=== PATIENT | female | born 1975 | race Caucasian/White ===

== ENCOUNTER 2019-04-10 11:13 | Emergency (ER) | payer MEDICAID, OTHER ==
--- NOTE | 2019-04-10 11:45 | ED ---
Abdominal Pain/Female - HPI Summary HPI Summary: Patient is a 43 y/o F presenting to ED with complaints of RUQ pain that onset this morning. Patient notes that the pain onset while she was moving objects in her office. PSHx of cholecystectomy and appendectomy. However, patient describes present pain as being similar to that she experienced during her previous gallbladder attacks. Nausea and some SOB are endorsed. Fever and trauma are denied. She states that her RUQ feels "congested" and notes some radiation and exacerbation of pain with deep breaths. Movement and supine position exacerbate pain as well. BMs are reported to be normal, last was this morning. Patient denies urinary Sx and states she has been passing gas normally. Pain is 7-8/10 at present. PMHx of GERD, but she states this presentation is dissimilar to her GERD. Patient is on last day of her menstrual cycle. 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 Home medications and allergies are reviewed. - History of Current Complaint Stated Complaint: ABD PAIN Hx Obtained From: Patient Hx Last Menstrual Period: 08/08/14 Onset/Duration: Sudden Onset, Lasting Hours - this morning, Still Present Timing: Hours - this morning Pain Intensity: 7 Pain Scale Used: 0-10 Numeric Location: Discrete At: RUQ Character: Other: - "congested" Aggravating Factor(s): Movement, Deep Breaths, Other: - supine position Alleviating Factor(s): Nothing Associated Signs and Symptoms: Positive: Nausea, Other: - SOB endorsed, passing gas normally, BMs normal, no trauma. Negative: Fever, Constipation, Urinary Symptoms, Diarrhea Allergies/Adverse Reactions: Allergies Allergy/AdvReac Type Severity Reaction Status Date / Time latex Allergy Rash Verified 04/10/19 11:29 Home Medications: Home Medications NK [No Home Medications Reported] 04/10/19 [History Confirmed 04/10/19] PMH/Surg Hx/FS Hx/Imm Hx Cardiovascular History: Reports: Hx Hypertension GI History: Reports: Hx Gall Bladder Disease Musculoskeletal History: Denies: Hx Scoliosis Neurological History: Reports: Hx Headaches Denies: Other Neuro Impairments/Disorders - Surgical History Surgery Procedure, Year, and Place: cholecystectomy and appendectomy - Immunization History Date of Tetanus Vaccine: <10 yrs. Date of Influenza Vaccine: Fall 2010 Infectious Disease History: No Infectious Disease History: Denies: Traveled Outside the [place] in Last 30 Days - Family History Known Family History: Negative: Cardiac Disease, Hypertension, Diabetes - Social History Alcohol Use: Rare Substance Use Type: Reports: None Smoking Status (MU): Former Smoker Review of Systems Negative: Fever Positive: Shortness Of Breath Positive: Abdominal Pain, Nausea Genitourinary: Other - PASSING GAS NORMALLY, NO ABNORMAL BMs Positive: no symptoms reported - URINARY Musculoskeletal: Other - NEGATIVE - TRAUMA All Other Systems Reviewed And Are Negative: Yes Physical Exam - Summary Physical Exam Summary: VITAL SIGNS: Reviewed. GENERAL: Patient is a well-developed and nourished female who is lying comfortable in the stretcher. Patient is not in any acute respiratory distress. Right ribcage tenderness is noted. HEAD AND FACE: Normocephalic and atraumatic. EYES: PERRLA, EOMI x 2, No injected conjunctiva. EARS: Hearing grossly intact. Ear canals and tympanic membranes are WNL. MOUTH: Oropharynx within normal limits. NECK: Supple, trachea is midline, no adenopathy, no JVD. CHEST: Symmetric, no tenderness at palpation LUNGS: Clear to auscultation bilaterally. No wheezing or crackles. CVS: RRR, S1 and S2 present, no murmurs or gallops appreciated. ABDOMEN: Soft, RUQ tenderness. No signs of distention. Positive bowel sounds. No rebound no guarding, and no masses palpated. No abdominal bruit or pulsations. EXTREMITIES: FROM in all major joints, no edema, no cyanosis or clubbing. NEURO: Alert and oriented x 3. No acute neurological deficits. Speech is normal. SKIN: Dry and warm. Triage Information Reviewed: Yes Vital Signs On Initial Exam: Initial Vitals Temp Pulse Resp BP Pulse Ox 98.7 F 89 19 205/119 98 04/10/19 11:26 04/10/19 11:26 04/10/19 11:26 04/10/19 11:26 04/10/19 11:26 Vital Signs Reviewed: Yes Diagnostics - Vital Signs Vital Signs Temp Pulse Resp BP Pulse Ox 04/10/19 11:26 98.7 F 89 19 205/119 98 - Laboratory Result Diagrams: 04/10/19 12:05 04/10/19 12:05 Lab Statement: Any lab studies that have been ordered have been reviewed, and results considered in the medical decision making process. - CT CT ABD/PEL CT Interpretation Completed By: Radiologist Summary of CT Findings: IMPRESSION: 1. STATUS POST CHOLECYSTECTOMY. THERE IS MILD EXTRAHEPATIC DUCTAL DISTENTION. THIS IS. COMMONLY SEEN IN POSTCHOLECYSTECTOMY PATIENTS. IF THE PATIENT'S RIGHT UPPER QUADRANT PAIN. PERSISTS CONSIDER MRCP IMAGING. 2. MILDLY ENLARGED UTERUS. THIS REPORT WAS REVIEWED BY DR. JENSEN. - EKG 1209 Cardiac Rate: NL - rate of 91 BPM EKG Rhythm: Sinus Rhythm EKG Comparison: No Significant Change - compared to 10/12/15 Summary of EKG Findings: EKG showed sinus rhythm with rate of 91 BPM, no ST elevation, normal axis, no significant change compared to 10/12/15. Dr. Jensen has reviewed and interpreted EKG. Re-Evaluation - Re-Evaluation First Eval Re-Evaluation Time: 15:10 Change: Improved Comment: Patient had high BP and was given lambetalol, BP is stable now. She is pain free at this time. I discussed all the findings and test results with the patient. Patient was instructed to return to the emergency room immediately if any of the symptoms return worsens. Plan of care was discussed with the patient and understands and agrees. All questions were answered at patient satisfaction. There were no further complaints or concerns. Lung exam before discharge: CTA B/L. Good air exchange. No wheezing or crackles heard. CVS: S1 and S2 present. No murmurs appreciated. Patient is alert and oriented x 3. Patient is hemodynamically stable. Patient will be discharged home with follow up PCP in the next 2-3 days Abdominal Pain Fem Course/Dx - Course Course Of Treatment: Patient is a 43 y/o F presenting to ED with complaints of RUQ pain that onset this morning. PSHx of cholecystectomy and appendectomy. However, patient describes present pain as being similar to that she experienced during her gallbladder attacks. Nausea and some SOB are endorsed. Fever and trauma are denied. Patient notes that the pain onset while she was moving objects in her office this morning. She states that her RUQ feels "congested" and some radiation and exacerbation of pain with deep breaths. Movement and supine position exacerbate pain as well. BM are reported to be normal, last was this morning. Patient denies urinary Sx and states she has been passing gas normally. Pain is 7-8/10 at present. PMHx of GERD, but she states this presentation is dissimilar to her GERD. Patient is on last day of her menstrual cycle. 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 Abbdominal and pelvic CT IMPRESSION: 1. STATUS POST CHOLECYSTECTOMY. THERE IS MILD EXTRAHEPATIC DUCTAL DISTENTION. THIS IS COMMONLY SEEN IN POSTCHOLECYSTECTOMY PATIENTS. IF THE PATIENT'S RIGHT UPPER QUADRANT PAIN PERSISTS CONSIDER MRCP IMAGING. 2. MILDLY ENLARGED UTERUS. Blood work without any significant abnormality except for potassium at 3.3 and glucose of 106. Urinalysis is negative for UTI. In the ED course the patient was given morphine and Zofran for nausea and pain and the symptoms improved. The patient also was given IV hydration. Patients blood pressure has continued to be elevated. Therefore the patient was given labetalol 20 mg IV. She has no history of hypertension. She declined any blood pressure medications at this point to be prescribed for her. She has an appointment with her primary care physician and she will decided to take blood pressure medications to the point. She is ruled out for diverticulitis, kidney stones, or any other intra- abdominal pathology the patient will be discharged home with follow-up with PCP. Patient is hemodynamically stable alert oriented 3. I discussed all the findings and test results with the patient. Patient was instructed to return to the emergency room immediately if any of the symptoms return worsens. Plan of care was discussed with the patient and understands and agrees. All questions were answered at patient satisfaction. There were no further complaints or concerns. Lung exam before discharge: CTA B/L. Good air exchange. No wheezing or crackles heard. CVS: S1 and S2 present. No murmurs appreciated. Patient is alert and oriented x 3. Patient is hemodynamically stable. Patient will be discharged home with follow up PCP in the next 2-3 days - Diagnoses Provider Diagnoses: Upper abdominal pain Discharge - Sign-Out/Discharge Documenting (check all that apply): Patient Departure - discharge Patient Received Moderate/Deep Sedation with Procedure: No - Discharge Plan Condition: Stable Disposition: HOME Patient Education Materials: Abdominal Pain (ED) Referrals: Lee Darden MD [Primary Care Provider] - 3 Days Additional Instructions: PLEASE RETURN TO ED FOR ANY CHANGING OR WORSENING SYMPTOMS. FOLLOW UP WITH YOUR PRIMARY CARE PHYSICIAN WITHIN THREE DAYS. - Billing Disposition and Condition Condition: STABLE Disposition: Home - Attestation Statements Document Initiated by Scribe: Yes Documenting Scribe: MALI PEREZ Provider For Whom Scribe is Documenting (Include Credential): ALEX JENSEN MD Scribe Attestation: I, MALI PEREZ, scribed for ALEX JENSEN MD on 04/10/19 at 2142. Scribe Documentation Reviewed: Yes Provider Attestation: The documentation as recorded by the [email or web address] accurately reflects the service I personally performed and the decisions made by me, ALEX JENSEN MD Status of Scribe Document: Viewed
[2019-04-10] MEDS ORDERED: NS 0.9% 1000 ML** 1,000 ML IV ONE (11:48)
[2019-04-10] MEDS ORDERED: Ondansetron INJ* 2 MG/ML VIAL IV ONE (11:50)
[2019-04-10] MEDS ORDERED: Morphine 4 MG/ML VIAL (1 ml) 4 MG/ML VIAL IV ONE (11:50)
[2019-04-10 12:06] LABS: Urine Appearance Clear; Urine Bacteria Absent (Absent); Urine Bilirubin Negative (Negative); Urine Blood 3+ (Negative); Urine Color Colorless; Urine Glucose Negative (Negative); Urine Ketones Negative (Negative); Urine Nitrite Negative (Negative); Urine Protein Negative (Negative); Urine Red Blood Cell Trace(0-2/hpf) (Absent); Urine Specific Gravity 1.001 (1.010-1.030); Urine Squamous Epithelial Cell Present (Absent); Urine Urobilinogen Negative (Negative); Urine White Blood Cell Absent (Absent)
[2019-04-10 12:09] LABS: ABS Eosinophils 0.1 10^3/ul (0-0.6); ABS Lymphocytes 1.5 10^3/ul (1.0-4.8); ABS Monocytes 0.3 10^3/ul (0-0.8); ABS Neutrophils 7.3 10^3/ul (1.5-7.7); Hematocrit 41 % (35-47); Hemoglobin 13.9 g/dL (12.0-16.0); Lymphocyte % 16.3 %; Mean Corpuscular HGB Conc 34 g/dL (31-36); Mean Corpuscular Hemoglobin 29 pg (27-31); Mean Corpuscular Volume 85 fL (80-97); Nucleated Red Blood Cells % 0.1; Platelet Count 267 10^3/uL (150-450); Red Blood Count 4.84 10^6 /uL (3.70-4.87); Red Cell Distribution Width 14 % (10-15); White Blood Count 9.3 10^3/uL (3.5-10.8)
[2019-04-10 12:29] LABS: ALT 15 U/L (7-52); AST 15 U/L (13-39); Albumin 4.6 g/dL (3.2-5.2); Albumin/Globulin Ratio 1.6 (1-3); Alkaline Phosphatase 41 U/L (34-104); Anion Gap 9 mmol/L (2-11); BUN/Creatinine Ratio 14.1 (8-20); Blood Urea Nitrogen 12 mg/dL (6-24); C Reactive Protein 3.07 mg/L (<8.01); CO2 Carbon Dioxide 27 mmol/L (22-32); Calcium 9.5 mg/dL (8.6-10.3); Chloride 104 mmol/L (101-111); EGFR African American 87.9 (>60); EGFR Non-African American 72.7 (>60); Globulin 2.8 g/dL (2-4); Glucose 106 mg/dL (70-100); Magnesium 2.1 mg/dL (1.9-2.7); Potassium 3.3 mmol/L (3.5-5.0); Sodium 140 mmol/L (135-145); Total Protein 7.4 g/dL (6.4-8.9)
[2019-04-10 12:33] LABS: HCG Pregnancy < 0.60 mIU/mL
[2019-04-10] MEDS ORDERED: Iohexol 300* (CONTRAST) 10 ML SDV IV ONE (12:47)
[2019-04-10] MEDS ORDERED: Labetalol IV* 5 MG/ML 20 ML VIAL IV PUSH ONE (14:54)
[2019-04-10 15:44] VITALS: BP 164/103
== END 2019-04-10 15:50 | disposition home or self-care (01) ==
LOC: ED 11:13
DX: R10.11 Right upper quadrant pain (principal); R11.0 Nausea; R06.02 Shortness of breath; N85.2 Hypertrophy of uterus; R03.0 Elevated blood-pressure reading, without diagnosis of hypertension; Z90.49 Acquired absence of other specified parts of digestive tract; Z90.89 Acquired absence of other organs; Z91.040 Latex allergy status; Z87.891 Personal history of nicotine dependence
CPT/HCPCS: 36415; 74177; 80053; 81003; 81015; 83605; 83690; 83735; 84702; 85025; 86140; 93005; 96361; 96374; 96375; 99283; J2270; J2405; Q9967

== ENCOUNTER 2019-07-06 18:00 | Emergency (ER) | payer OTHER ==
--- OUTSIDE RECORDS SUMMARY | 2019-07-06 18:13 | XMS REPORT | Continuity of Care Document ---
:1975 External Reference #:[id number] Author Name Rosalinda Schneider M.D. (transmitted by agent of provider Ana Laura Millert) Address [address] [place] [address] Care Team Providers Name Role Phone Yessi Davis NP - Family Care Team Information Mfts [phone] Lee Darden MD - Family Medicine Care Team Information M[facility] Problems Active Problems Provider Date Essential hypertension Rosalinda Schneider M.D. Onset: 07/05/2019 Aortic valve disorder Rosalinda Schneider M.D. Onset: 07/05/2019 Aneurysm of thoracic aorta Rosalinda Schneider M.D. Onset: 07/05/2019 Social History Type Date Description Comments Sex Unknown Tobacco Use Start: Unknown End: Former Cigarette Smoker 1 quit 2000 Unknown Pack Daily Smoking Status Reviewed: 07/05/19 Former Cigarette Smoker 1 quit 2000 Pack Daily ETOH Use Currently consumes 1 drink/week alcohol Tobacco Use Start: Unknown End: Patient is a former Unknown smoker Recreational Drug Use Never Used Drugs Exercise Type/Frequency bike, walk 2x per week run, yoga. Allergies, Adverse Reactions, Alerts Active Allergies Reaction Severity Comments Date NKDA 05/07/2012 Latex rash, skin irritation 05/04/2019 Medications Active Medications SIG Qnty Indications Ordering Provider Date Lisinopril 1/2 by mouth Unknown 10mg Tablets every day Airborne prn Unknown Lozenges Advil prn, non since Unknown 200mg Capsules April 10 (when BP elev in ED) Immunizations Description No Information Available Vital Signs Date Vital Result Comment 07/05/2019 8:58am Height 67.50 inches 5'7.50" Weight 160.25 lb with shoes Heart Rate 64 /min radial regular BP Systolic Sitting 138 mmHg Lue reg cuff BP Diastolic Sitting 78 mmHg Lue reg cuff BP Systolic Standing 136 mmHg Lue reg cuff BP Diastolic Standing 78 mmHg Lue reg cuff BMI (Body Mass Index) 24.7 kg/m2 Ejection Fraction 60-65% ECHO 06/20/19 06/21/2019 9:02am Height 67.50 inches 5'7.50" Weight 162.00 lb w/ shoes Heart Rate 73 /min BP Systolic Sitting 164 mmHg BP Diastolic Sitting 98 mmHg BP Systolic Lying Down 152 mmHg manual left arm, end of visit BP Diastolic Lying Down 94 mmHg manual left arm, end of visit BMI (Body Mass Index) 25.0 kg/m2 Results Test Date Facility Test Result H/L Range Note Laboratory test 06/26/2019 [facility] TSH 1.20 mcIU/mL Normal 0.34-5.[address] ([place] [address] Stim Horm) [phone] Free T4 (Free Thyroxine) 0.80 ng/dL Normal 0.61-1.12 Acth 25 pg/mL 1 Cortisol 8.95 g/dL 2 Insulin-Like Growth 06/26/2019 [facility] Insulin like 223 ng/ mL 49-[address] [place] [address] I [phone] Igf1 Z-score 1.65 SD 3 Laboratory test 06/26/2019 [facility] Hemoglobin A1c 5.7 % High 4.0-5.[address] (Glyco HGB) [place] [address] [phone] Prolactin 10.1 ng/mL Normal 1.0-25.0 Aldosterone 6.5 ng/dL <=21 5 Renin 8.9 ng/mL/h 6 Metanephrines 06/26/2019 [facility] Plasma Free 0.53 <0.[address] Normetanephrine nmol/[place] [address] [phone] Plasma Free Metanephrine <0.20 nmol/L <0.50 7 1 REFERENCE VALUE 7.2-63 (a.m. collection) Test Performed by: [facility] - [address] [address] 2 AM 8.7-22.4 PM <10 3 REFERENCE VALUE -2.0 - +2.0 ADDITIONAL INFORMATION This test was developed and its performance characteristics determined by [facility] in a manner consistent with CLIA requirements. This test has not been cleared or approved by the U.S. Food and Drug Administration. Test Performed by: [facility] - [address] [address] 4 Therapeutic target for the treatment of diabetes mellitus patients is <7% HBA1C, and in selective patients <6.0%. Please refer to [place] [employer] diabetic care guidelines for further information. 5 ADDITIONAL INFORMATION Reference range for patients 11 years and older is based on upright A.M. collection from subjects without sodium restrictions. This test was developed and its performance characteristics determined by [facility] in a manner consistent with CLIA requirements. This test has not been cleared or approved by the U.S. Food and Drug Administration. Test Performed by: [facility] - [address] [address] 6 REFERENCE VALUE (Peripheral vein specimen) Na-deplete, upright: Mean: 5.9 Range: 2.9-10.8 Na-replete, upright: Mean: 1.0 Range: < or =0.6-3.0 ADDITIONAL INFORMATION Testing performed by Liquid Chromatography-Tandem Mass Spectrometry (LC-MS/MS). This test was developed and its performance characteristics determined by [facility] in a manner consistent with CLIA requirements. This test has not been cleared or approved by the U.S. Food and Drug Administration. Test Performed by: [facility] - [address] [address] 7 ADDITIONAL INFORMATION This test was developed and its performance characteristics determined by [facility] in a manner consistent with CLIA requirements. This test has not been cleared or approved by the U.S. Food and Drug Administration. Test Performed by: [facility] - [address] [address] Procedures Date Code Description Status 06/20/2019 90780 ECHO Transthoracic, Real-Time 2D With Doppler And Color Completed Flow 06/20/2019 69243 ECHO Transthoracic, Real-Time 2D With Doppler And Color Completed Flow 06/18/2019 76619 Stress Test Completed 05/03/2019 70448 EKG Tracing & Interpretation Completed Medical Devices Description No Information Available Encounters Type Date Location Provider Dx Diagnosis Office Visit 07/05/2019 [facility] Rosalinda Schneider M.D. R11.0 Nausea 9:00a [facility] [place] [facility]10 Essential (primary) hypertension I71.2 Thoracic aortic aneurysm, without rupture I35.1 Nonrheumatic aortic (valve) insufficiency G43.901 Migraine, unsp, not intractable, with status migrainosus Office Visit 06/21/2019 9:00a [facility], D35.2 Benign neoplasm [facility] of pituitary gland I10 Essential (primary) hypertension Office Visit 05/03/2019 3:00p [facility] Rosalinda Schneider I10 Essential (primary) Of [facility] hypertension R00.2 Palpitations D35.2 Benign neoplasm of pituitary gland Z82.49 Family hx of ischem heart dis and oth dis of the circ sys Assessments Date Code Description Provider 07/05/2019 R11.0 Nausea Rosalinda Schneider M.D. 07/05/2019 I10 Essential (primary) hypertension Rosalinda Schneider M.D. 07/05/2019 I71.2 Thoracic aortic aneurysm, without rupture Rosalinda Schneider M.D. 07/05/2019 I35.1 Nonrheumatic aortic (valve) insufficiency Rosalinda Schneider M.D. 07/05/2019 G43.901 Migraine, unspecified, not intractable, with Rosalinda Schneider M.D. status migrainosus 06/21/2019 D35.2 Benign neoplasm of pituitary gland Reynold Holden MD 06/21/2019 I10 Essential (primary) hypertension Reynold Holden MD 06/20/2019 I10 Essential (primary) hypertension Rosalinda Schneider M.D. 06/20/2019 I10 Essential (primary) hypertension Traveling ECHO 2 06/18/2019 R00.2 Palpitations Rosalinda Schneider M.D. 05/03/2019 I10 Essential (primary) hypertension Rosalinda Schneider M.D. 05/03/2019 R00.2 Palpitations Rosalinda Schneider M.D. 05/03/2019 D35.2 Benign neoplasm of pituitary gland Rosalinda Schneider M.D. 05/03/2019 Z82.49 Family history of ischemic heart disease and Rosalinda Schneider M.D. other diseases Plan of Treatment Future Appointment(s):09/06/2019 10:40 am - Rosalinda Schneider M.D. at [facility] [place]18[place]2019 9:00 am - Nataliya Martinez NRosalind at [facility]07/05/2019 - Rosalinda Schneider M.D.R11.0 UufaliU00 Essential ( primary) hypertensionFollow up:2 weeks approx. [facility]NA[facility] [employer] 2 months approx MDI71.2 Thoracic aortic aneurysm, without ruptureNew Xrays:CT Chest W, Ordered: I35.1 Nonrheumatic aortic (valve) tnauiaesgsiyzQ84.901 Migraine, unspecified, not intractable, with status migrainosusReferral:Angela Garcia MD, Neurology Functional Status Description No Information Available Mental Status Description No Information Available Referrals Refer to Dr Reason for Referral Status Appt Date Angela Garcia MD Occular migrains. Hx pituitary problems. Created [address] [place] [address] [phone] Reynold Holden MD Hx pituitary adenoma, recent HTN, low K+ Dr Darden is Sent primary [place] [address] [place] [address] [phone]
[2019-07-06] MEDS ORDERED: LORazepam TAB(*) 1 MG PO ONE (18:54)
--- NOTE | 2019-07-06 19:03 | ED ---
Hypertension - HPI Summary HPI Summary: 43 year old F presenting to [facility] accompanied by valentina with a chief complaint of high blood pressure since today, 07/06/19, at 16:00. Symptoms aggravated by nothing. Symptoms alleviated by nothing. Patient reports she had a stressful past few days due to her daughter running away today, diagnosis of dilated aorta during heart doctor visit yesterday (), and a blood pressure of 140/90 this morning and then more recently of 170/ 100. Patient reports that this afternoon she felt weak, woozy, and nauseous and that she has been nauseous on and off, lightheaded, and hypertensive for a few weeks which no one can figure out the reasoning. Patient reports 7 ocular migraines since April which she normally only has once every 3 months. Patient reports her anxiety took over today leading to shivering and tightness in her back and in her upper body. Patient denies headache, trouble breathing, diarrhea, and vomiting. Patient report walking normally (other than due to the anxiety) and urinating normally. SHx appendix and gallbladder. Patient denies allergies to medications, alcohol use, drug use, and current smoking. Patient used to take anxiety medications but does not anymore. - History of Current Complaint Chief Complaint: EDHypertension Stated Complaint: HIGH BP PER PT Time Seen by Provider: 07/06/19 18:32 Hx Obtained From: Patient Hx Last Menstrual Period: 08/08/14 Onset/Duration: Started Hours Ago, Still Present Aggravating Factor(s): Nothing Alleviating Factor(s): Nothing Associated Signs & Symptoms: Anxiety/Stress, Weakness, Other: - reports "woozy" and nauseous - Allergies/Home Medications Allergies/Adverse Reactions: Allergies Allergy/AdvReac Type Severity Reaction Status Date / Time latex Allergy Rash Verified 06/20/19 12:05 Home Medications: Home Medications Lisinopril 10 mg PO DAILY 07/06/19 [History Confirmed 07/06/19] PMH/Surg Hx/FS Hx/Imm Hx Endocrine/Hematology History: Denies: Hx Diabetes Cardiovascular History: Reports: Hx Hypertension Denies: Hx Pacemaker/ICD GI History: Reports: Hx Gall Bladder Disease History: Denies: Hx Renal Disease Musculoskeletal History: Denies: Hx Scoliosis Sensory History: Denies: Hx Hearing Aid Neurological History: Reports: Hx Headaches Denies: Other Neuro Impairments/Disorders Psychiatric History: Denies: Hx Panic Disorder - Surgical History Surgery Procedure, Year, and Place: cholecystectomy and appendectomy - Immunization History Date of Tetanus Vaccine: <10 yrs. Date of Influenza Vaccine: Fall 2010 Infectious Disease History: No Infectious Disease History: Denies: Traveled Outside the [place] in Last 30 Days - Family History Known Family History: Negative: Cardiac Disease, Hypertension, Diabetes - Social History Alcohol Use: Rare Hx Substance Use: No Substance Use Type: Reports: None Hx Tobacco Use: Yes Smoking Status (MU): Former Smoker Review of Systems Positive: Other - weakness Cardiovascular: Other - high blood pressure Respiratory: Other - denies trouble breathing Positive: Nausea. Negative: Vomiting, Diarrhea Positive: other - denies problems urinating Positive: Other - denies issues ambulating Neurological: Other - lightheaded Negative: Headache Positive: Anxious All Other Systems Reviewed And Are Negative: Yes Physical Exam - Summary Physical Exam Summary: Constitutional: Well-developed, Well-nourished, Alert. (-) Distressed Skin: Warm, Dry HENT: Normocephalic; Atraumatic Eyes: Conjunctiva normal Neck: Musculoskeletal ROM normal neck. (-) JVD, (-) Stridor, (-) Tracheal deviation Cardio: Rhythm regular, rate normal, Heart sounds normal; Intact distal pulses; The pedal pulses are 2+ and symmetric. Radial pulses are 2+ and symmetric. (-) Murmur Pulmonary/Chest wall: Effort normal. (-) Respiratory distress, (-) Wheezes, (-) Rales Abd: Soft. (-) Tenderness, (-) Distension, (-) Guarding, (-) Rebound Musculoskeletal: (-) Edema Lymph: (-) Cervical adenopathy Neuro: Alert, Oriented x3, Strength normal, Cranial nerves II-XII are grossly intact. (-) Dysmetria, (-) Nystagmus, (-) Ataxia by finger to nose testing, (-) Sensory deficit. walked with normal gait, appears anxious Psych: Mood and affect Normal Triage Information Reviewed: Yes Vital Signs On Initial Exam: Initial Vitals Temp Pulse Resp BP Pulse Ox 99.1 F 99 18 191/111 100 07/06/19 18:02 07/06/19 18:02 07/06/19 18:02 07/06/19 18:02 07/06/19 18:02 Vital Signs Reviewed: Yes Diagnostics - Vital Signs Vital Signs Temp Pulse Resp BP Pulse Ox 07/06/19 18:02 99.1 F 99 18 191/111 100 - Laboratory Result Diagrams: 07/06/19 19:00 07/06/19 19:00 Lab Statement: Any lab studies that have been ordered have been reviewed, and results considered in the medical decision making process. - EKG 191 Cardiac Rate: NL - 61 BPM Summary of EKG Findings: Normal sinus rhythm at 61 BPM. Re-Evaluation - Re-Evaluation First Eval Re-Evaluation Time: 20:03 Comment: Physician discusses discharge with patient as patient feels better after ativan. Hypertension Course/Dx - Course Course Of Treatment: Patient is here with multiple nondescript symptoms in the setting of worsening hypertension. Patient had an anxiety producing day when her daughter ran away. Patient had a normal neurologic and cardiac exam here. Patient had a CBC, CMP, troponin, TSH performed which were all grossly unremarkable. Patient had a normal EKG. Patient was given 1 mg of Ativan by mouth as she was obviously anxious with improvement in her symptoms and blood pressure. Patient was encouraged up with her primary care doctor and machine pecan picker as soon as possible. - Diagnoses Differential Diagnosis/HQI PQRI: Hypertension Provider Diagnoses: Nausea, Weakness, Anxiety Discharge ED - Sign-Out/Discharge Documenting (check all that apply): Patient Departure - discharge Patient Received Moderate/Deep Sedation with Procedure: No - Discharge Plan Condition: Stable Disposition: HOME Prescriptions: hydrOXYzine pamoate [Vistaril] 25 mg PO Q8HR PRN #20 capsule PRN Reason: Anxiety Patient Education Materials: Hypertension (ED), Anxiety (ED) Referrals: Lee Darden MD [Primary Care Provider] - Additional Instructions: Please follow up with your primary care doctor and your machine pecan picker as soon as possible You have been prescribed an anxiety medicine that he can take and start feel anxious again Please return if you have chest pain, severe headache, change in vision, changes in urination or any other concerning symptoms - Billing Disposition and Condition Condition: STABLE Disposition: Home - Attestation Statements Document Initiated by Scribe: Yes Documenting Scribe: Larissa Mena Provider For Whom Scribe is Documenting (Include Credential): Dr. Rafiq Meade MD Scribe Attestation: Larissa Teague, scribed for Dr. Rafiq Meade MD on 07/06/19 at 2012. Scribe Documentation Reviewed: Yes Provider Attestation: The documentation as recorded by the scribe, Larissa Mena accurately reflects the service I personally performed and the decisions made by me, Dr. Rafiq Meade MD Status of Scribe Document: Viewed
[2019-07-06 19:08] LABS: ABS Eosinophils 0.2 10^3/ul (0-0.6); ABS Lymphocytes 1.7 10^3/ul (1.0-4.8); ABS Monocytes 0.4 10^3/ul (0-0.8); ABS Neutrophils 5.8 10^3/ul (1.5-7.7); Eosinophil % 2.1 %; Hematocrit 39 % (35-47); Hemoglobin 13.7 g/dL (12.0-16.0); Lymphocyte % 21.2 %; Mean Corpuscular HGB Conc 35 g/dL (31-36); Mean Corpuscular Hemoglobin 30 pg (27-31); Mean Corpuscular Volume 85 fL (80-97); Mean Platelet Volume 7.6 fL (7.4-10.4); Nucleated Red Blood Cells % 0.1; Platelet Count 263 10^3/uL (150-450); Red Blood Count 4.61 10^6 /uL (3.70-4.87); Red Cell Distribution Width 14 % (10-15)
[2019-07-06 19:23] LABS: ALT 20 U/L (7-52); AST 15 U/L (13-39); Albumin 4.7 g/dL (3.2-5.2); Albumin/Globulin Ratio 1.7 (1-3); Alkaline Phosphatase 38 U/L (34-104); Anion Gap 7 mmol/L (2-11); BUN/Creatinine Ratio 15.7 (8-20); Blood Urea Nitrogen 13 mg/dL (6-24); CO2 Carbon Dioxide 28 mmol/L (22-32); Calcium 9.5 mg/dL (8.6-10.3); Chloride 104 mmol/L (101-111); EGFR African American 90.4 (>60); EGFR Non-African American 74.7 (>60); Globulin 2.7 g/dL (2-4); Glucose 107 mg/dL (70-100); Potassium 3.6 mmol/L (3.5-5.0); Sodium 139 mmol/L (135-145); Total Protein 7.4 g/dL (6.4-8.9)
[2019-07-06 19:30] LABS: HCG Pregnancy < 0.60 mIU/mL
[2019-07-06 19:52] LABS: TSH (Thyroid Stimulating Horm) 1.02 mcIU/mL (0.34-5.60)
[2019-07-06 20:04] VITALS: BP 134/90
== END 2019-07-06 20:00 | disposition home or self-care (01) ==
LOC: ED 18:00
DX: F41.9 Anxiety disorder, unspecified (principal); R53.1 Weakness; R11.0 Nausea; I10 Essential (primary) hypertension; Z87.891 Personal history of nicotine dependence; Z79.899 Other long term (current) drug therapy; Z91.040 Latex allergy status
CPT/HCPCS: 36415; 80053; 84443; 84484; 84702; 85025; 93005; 99282; A9270-GY

== ENCOUNTER 2019-07-10 08:18 | Emergency (ER) | payer OTHER ==
--- NOTE | 2019-07-10 08:59 | ED ---
Dizziness - HPI Summary HPI Summary: The patient is a 43 y/o F presenting to [facility] with a chief complaint of gradual worsening feeling of nausea and dizziness intermittently over the last month. The dizziness is described as lightheadedness, as if she needs to eat something. She reports that she has hypertension with change in meds to Metoprolol 25mg once daily at night starting two days ago (rx by Dr. Schneider from cardiology), but her SBP continued to be elevated in the 150s mmHg (she notes White coat syndrome). She additionally c/o anxiety with having difficulty finding a solution to her symptoms as seen has seen various specialists, including an clerical supervisor, who also was unable to find any significant abnormalities with adrenal or kidney functioning. She is supposed to have a cardiac CT for evaluating a dilated aorta, as recommended by her PCP (Dr. Darden' s office). She states she has used Xanax previously but hasnt taken it in at least a year, and she has also taken Wellbutrin in the past for about a year that has helped her through her stressors, but then it had increased her anxiety. There is also a dull ache in the abdomen which she states could have been secondary to constipation, but she did have a normal BM this morning. She denies any CP, SOB, vomiting, or dysuria. Menstrual cycles are normal. She doesn t have any recent or previous trauma. She has not seen a neurologist yet, but she has a stable microadenoma dx about 15 years ago. She was here in the ED on 07/06/19 as her symptoms worsened from baseline secondary to trouble with her child running away. She was given Hydroxyzine during that visit. She took this am without relief. Denies vision changes, headache. Currently, her symptoms are rated 0/10 in severity. Pt states this could be her anxiety returning, but she has fear there is something else that hasn't been "found" yet. Former smoker, rare EtOH, no substance use. Patients medications reviewed this visit. Allergies noted. - History Of Current Complaint Chief Complaint: EDGeneral Stated Complaint: HIGH BP,NAUSEA, DIZZY PER PT Time Seen by Provider: 07/10/19 08:38 Hx Obtained From: Patient, Medical Records Onset/Duration: Still Present Timing: Weeks Severity Initially: Mild Severity Currently: Mild Character: Lightheaded - "sensation of needing to eat", Dizzy Aggravating Factor(s): Other - stress, anxiety Alleviating Factor(s): Nothing Associated Signs And Symptoms: Positive: Nausea, Change In Medication - new HTN med Metoprolol rx two days ago, Other: - Positive: abd discomfort secondary to resolved constipation this morning with nml BM. Negative: dysuria.. Negative: Vomiting, Chest Pain, SOB - Allergies/Home Medications Allergies/Adverse Reactions: Allergies Allergy/AdvReac Type Severity Reaction Status Date / Time latex Allergy Rash Verified 07/10/19 14:13 Home Medications: Home Medications Metoprolol Succinate [Metoprolol Succinate ER] 25 mg PO DAILY 07/10/19 [History Confirmed 07/10/19] PMH/Surg Hx/FS Hx/Imm Hx Previously Healthy: Yes Endocrine/Hematology History: Denies: Hx Diabetes Cardiovascular History: Reports: Hx Hypertension Denies: Hx Pacemaker/ICD GI History: Reports: Hx Gall Bladder Disease History: Denies: Hx Renal Disease Musculoskeletal History: Denies: Hx Scoliosis Sensory History: Denies: Hx Hearing Aid Neurological History: Reports: Hx Headaches Denies: Other Neuro Impairments/Disorders Psychiatric History: Denies: Hx Panic Disorder - Surgical History Surgical History: Yes Surgery Procedure, Year, and Place: cholecystectomy and appendectomy - Immunization History Date of Tetanus Vaccine: <10 yrs. Date of Influenza Vaccine: Fall 2010 Infectious Disease History: No Infectious Disease History: Denies: Traveled Outside the [place] in Last 30 Days - Family History Known Family History: Positive: Non-Contributory Negative: Cardiac Disease, Hypertension, Diabetes - Social History Occupation: Employed Full-time Lives: With Family Alcohol Use: Rare Hx Substance Use: No Substance Use Type: Reports: None Hx Tobacco Use: Yes Smoking Status (MU): Former Smoker Review of Systems Positive: Fatigue Negative: Chest Pain Positive: Other - elevated BP. Negative: Shortness Of Breath Positive: Abdominal Pain - constipated feeling likely due to constipation that resolved this morning with nml BM, Nausea. Negative: Vomiting Negative: dysuria Neurological: Other - dizziness described as lightheadedness Positive: Anxious All Other Systems Reviewed And Are Negative: Yes Physical Exam - Summary Physical Exam Summary: Vital Signs Reviewed: Yes A+Ox3, anxious appearing, tearful Eyes: Conjunctiva injected, NANCY. EOM intact and full no nystagmus ENT: Hearing grossly normal TM x 2 clear, mmoist, uvula midline, no exudate, no erythema Neck: Positive: Supple Respiratory: Positive: No respiratory distress, No accessory muscle use + CTA throughout no w/r Cardiovascular: RRR nl s1, s2 no m/r CBT <2 sec, no bruits, no edema abd soft + BS nt/nd no guarding, no distension Musculoskeletal Exam: SENA x 4 without difficulty Strength Intact, ROM Intact Neurological: Positive: Alert, + sensation throughout Psychological: Positive: Normal Response To drywall finisher foreman Skin: Positive: no rash, no ecchymosis Triage Information Reviewed: Yes Vital Signs On Initial Exam: Initial Vitals Temp Pulse Resp BP Pulse Ox 97.7 F 77 18 184/110 99 07/10/19 08:20 07/10/19 08:20 07/10/19 08:20 07/10/19 08:20 07/10/19 08:20 Vital Signs Reviewed: Yes Diagnostics - Vital Signs Vital Signs Temp Pulse Resp BP Pulse Ox 07/10/19 08:45 150/100 07/10/19 08:43 68 158/105 99 07/10/19 08:37 71 180/106 100 07/10/19 08:20 97.7 F 77 18 184/110 99 - Laboratory Result Diagrams: 07/10/19 09:25 07/10/19 09:24 Lab Statement: Any lab studies that have been ordered have been reviewed, and results considered in the medical decision making process. - EKG 0913 Cardiac Rate: Bradycardia - 58 bpm EKG Rhythm: Sinus Rhythm EKG Comparison: No Significant Change - Similar EKG compared to 07/06/19. Summary of EKG Findings: Sinus rhythm at 58 bpm. No acute changes. No ST changes. Re-Evaluation - Re-Evaluation First Eval Re-Evaluation Time: 09:56 Comment: We discussed results thus far and further plan for treatment. Pt in agreement - reports feeling better, nausea improved Second Eval Re-Evaluation Time: 10:28 Change: Improved Comment: She is feeling better and would like to eat. We will call Dr. Darden, her PCP and discuss plan Third Eval Re-Evaluation Time: 10:52 Change: Improved Comment: She continues to feel better. We discussed Dr. Darden's consultation with plan for follow-up appt with Dr. Arguelles tomorrow 07/11/19 at 1000. d/w pt xanax (previousl took) vs ativan (took today and last visit) - pt would like continue ativan for now - aware future rx will be at discretion of appt - agreement with plan. Will discharge with limited rx, strict return precautions. pt amnulated, ate, ok for discharge Dizzy Course/Dx - Course Course Of Treatment: Pt presents to urgent care reporting 1 month of feeling "dizzy" and notes particularly when turns head. Pt with mild nausea. Pt also reports increase anxiety feelling - has been treated for same in past. Pt has been followed by cardiology who has been adjusting meds for BP as well as clerical supervisor with neg work up. Pt awaiting neuro referral and scehdule cardiac CT. Pt was given Rx hydroxyzine a few days ago when came to ED After daughter ran away - states took this am without effect. on exam BP markedly elevated at triage, Upon eval in room - improved to 156/98. On exam, pt intermitttently tearful, anxious appearing. I sat with pt and talked at length. Will give pt dose of ativan - it helped on her last visit. will check labs, thyroid, mag, urine will continue to [facility]. If eval neg and pt symptomatically better, will dw pcp regarding follow-up plant. Pt reports comfort and agreement with plan. will closely monitor Pt declined meclizine and antiemetic - Diagnoses Provider Diagnoses: Hypertension, Dizziness, Anxiousness - Provider Notifications Discussed Care Of Patient With: Lee Darden - pt's PCP Time Discussed With Above Provider: 10:34 Instructed by Provider To: Other - I discussed the pt's current symptom complex and recent hx with Dr. Darden, as well as course of treatment in the ED today. He is agreeable with plan following discharge and will set up a follow up appointment with the patient tomorrow 07/11/[address] Arguelles. Discharge ED - Sign-Out/Discharge Documenting (check all that apply): Patient Departure - Patient will be discharged home. Patient Received Moderate/Deep Sedation with Procedure: No - Discharge Plan Condition: Improved Disposition: HOME Prescriptions: LORazepam [Ativan] 0.5 mg PO Q8HR PRN #5 tablet MDD 3 PRN Reason: Anxiety Patient Education Materials: Hypertension (ED), Lightheadedness (ED), Anxiety ( ED) Referrals: Sara Arguelles MD [Medical Doctor] - 07/11/19 10:00 am Lee Darden MD [Primary Care Provider] - Additional Instructions: - Stay well hydrated - drink PLENTY of non-alcoholic, non-caffinated beverages - Eat and drink small, frequent bland foods - avoid spicy food, acidic food - Okay to take Ativan as prescribed for severe anxiety - do NOT take hydroxyzine if you are taking ativan - do not drive, operate machinery, or drink alcohol while taking - you have an appointment tomorrow with your primary care provider at 10am - it is very important you keep this appointment. - as discussed your blood pressure was slightly increased today - contiune to take your medication as previously prescribed - as discussed, your urine has been sent for additional testing - if you need an antibiotic, you will receive a call from a care steam distribution supervisor Contact your doctor, dial 911, or return with any questions or concerns - Billing Disposition and Condition Condition: IMPROVED Disposition: Home - Attestation Statements Document Initiated by Phyllis: Yes Documenting Scribe: Ana Laura Saab Provider For Whom Phyllis is Documenting (Include Credential): Dr. Argenis Chin MD Scribe Attestation: I, Ana Laura Saab scribed for Dr. Argenis Chin MD on 07/11/19 at 1953. Scribe Documentation Reviewed: Yes Provider Attestation: The documentation as recorded by the Ana Laura kim accurately reflects the service I personally performed and the decisions made by me, Dr. Argenis Chin MD Status of Scribe Document: Viewed
[2019-07-10] MEDS: LORazepam TAB(*) 0.5 MG PO ONE (09:22)
[2019-07-10] MEDS: NS 0.9% 1000 ML** 1,000 ML IV ONE (09:27)
[2019-07-10 09:39] LABS: ABS Eosinophils 0.1 10^3/ul (0-0.6); ABS Lymphocytes 1.1 10^3/ul (1.0-4.8); ABS Monocytes 0.3 10^3/ul (0-0.8); ABS Neutrophils 6.4 10^3/ul (1.5-7.7); Eosinophil % 1.8 %; Hematocrit 39 % (35-47); Hemoglobin 13.1 g/dL (12.0-16.0); Lymphocyte % 13.9 %; Mean Corpuscular HGB Conc 34 g/dL (31-36); Mean Corpuscular Hemoglobin 29 pg (27-31); Mean Corpuscular Volume 87 fL (80-97); Mean Platelet Volume 7.6 fL (7.4-10.4); Platelet Count 253 10^3/uL (150-450); Red Blood Count 4.48 10^6 /uL (3.70-4.87); Red Cell Distribution Width 14 % (10-15)
[2019-07-10 09:55] LABS: Urine Appearance Cloudy; Urine Bacteria 1+ (Absent); Urine Bilirubin Negative (Negative); Urine Blood 1+ (Negative); Urine Color Straw; Urine Glucose Negative (Negative); Urine Ketones Negative (Negative); Urine Nitrite Negative (Negative); Urine Protein Negative (Negative); Urine Red Blood Cell Absent (Absent); Urine Specific Gravity 1.002 (1.010-1.030); Urine Squamous Epithelial Cell Present (Absent); Urine Urobilinogen Negative (Negative); Urine White Blood Cell Trace(0-5/hpf) (Absent)
[2019-07-10 10:17] LABS: Albumin 4.5 g/dL (3.2-5.2); Albumin/Globulin Ratio 1.8 (1-3); Calcium 9.5 mg/dL (8.6-10.3); EGFR African American 90.4 (>60); EGFR Non-African American 74.7 (>60); Globulin 2.5 g/dL (2-4); Magnesium 2.1 mg/dL (1.9-2.7); Total Bilirubin 0.4 mg/dL (0.2-1.0)
[2019-07-10 10:56] LABS: TSH (Thyroid Stimulating Horm) 1.06 mcIU/mL (0.34-5.60)
[2019-07-10 11:18] VITALS: BP 147/93
== END 2019-07-10 11:15 | disposition home or self-care (01) ==
LOC: ED 08:18
DX: I10 Essential (primary) hypertension (principal); F41.9 Anxiety disorder, unspecified; Z87.891 Personal history of nicotine dependence; Z79.899 Other long term (current) drug therapy; Z91.040 Latex allergy status
CPT/HCPCS: 36415; 80053; 81003; 81015; 83735; 84443; 84484; 85025; 87086; 93005; 96360; 96361; 99283; A9270-GY